=== PATIENT | male | born 1960 | race Caucasian/White ===

== ENCOUNTER 2022-01-23 13:39 | Inpatient (IN) | payer MEDICARE, MEDICAID ==
[~2022-01-23] VITALS: Ht 170.2 cm; Wt 69.4 kg
[2022-01-23 15:40] LABS: HEMATOCRIT. 37.4 % (42.0-52.0); HEMOGLOBIN. 13.5 g/dL (14.0-18.0); MEAN CORPUSCULAR HEMOGLOBIN 35.6 pg (28.0-32.0); MEAN CORPUSCULAR VOLUME 99.2 fL (80.0-94.0); MEAN PLATELET VOLUME 6.8 fl (7.4-10.4); PLATELET 172 x1000/uL (130-400); RED BLOOD CELL COUNT 3.77 mill/uL (4.7-6.1); RED CELL DISTRIBUTION WIDTH 14.5 % (11.6-14.6)
[2022-01-23 15:48] LABS: CHLORIDE 84 mEq/L (98-107)
[2022-01-23 15:57] LABS: ETHANOL BLOOD < 10 mg/dL
[2022-01-23 16:41] LABS: PLATELET ESTIMATE NORMAL
[2022-01-23] MEDS ORDERED: LEVOFLOXACIN 750MG PREMIX 150 ML IV ONE (17:15)
[2022-01-23] MEDS ORDERED: SODIUM CHLORIDE 0.9% 1,000 ML IV ONE ×2 (17:15→20:45)
[2022-01-23] MEDS ORDERED: CEFTRIAXONE 1 G PREMIX 50 ML IV ONE (17:15)
[2022-01-23 18:23] LABS: CLARITY URINE CLEAR (CLEAR); COLOR URINE YELLOW (YELLOW); KETONES URINE TRACE (NEGATIVE); LEUKOCYTE ESTERASE URINE NEGATIVE (NEGATIVE); NITRITE URINE NEGATIVE (NEGATIVE); OCCULT BLOOD URINE NEGATIVE (NEGATIVE); PH URINE 6.5 (4.5-8.0); PROTEIN URINE NEGATIVE (NEGATIVE); SPECIFIC GRAVITY URINE 1.008 (1.005-1.030)
[2022-01-23 18:34] LABS: *AMPHETAMINES SCREEN URINE NEGATIVE (NEGATIVE); *BARBITURATES SCREEN URINE NEGATIVE (NEGATIVE); *BENZODIAZEPINES SCREEN URINE NEGATIVE (NEGATIVE); *COCAINE SCREEN URINE NEGATIVE (NEGATIVE); CANNABINOID URINE SCREEN NEGATIVE (NEGATIVE); METHADONE URINE SCREEN NEGATIVE (NEGATIVE); OPIATES URINE SCREEN NEGATIVE (NEGATIVE); PHENCYCLIDINE URINE SCREEN NEGATIVE (NEGATIVE)
[2022-01-23] MEDS ORDERED: SODIUM CHLORIDE 0.9% 500 ML IV ONE (20:45)
[2022-01-23] MEDS ORDERED: ACETAMINOPHEN 325MG TABLET PO PRN ×2 (22:00)
[2022-01-23] MEDS ORDERED: KETOROLAC 15MG/ML VIAL IV PRN (22:00)
[2022-01-23] MEDS ORDERED: LORAZEPAM 2MG/ML CPJ IV PRN (22:00)
[2022-01-23] MEDS ORDERED: ZOLPIDEM TARTRATE 5MG TABLET PO PRN (22:00)
[2022-01-23] MEDS ORDERED: GUAIFENESIN 200MG/10ML SUGAR FREE UDC PO PRN (22:00)
[2022-01-23] MEDS ORDERED: MAGNESIUM/ALUMINUM HYDROXIDE/SIMETHICONE 30ML UDC PO PRN (22:00)
[2022-01-23] MEDS ORDERED: NITROGLYCERIN 0.4MG TABLET SL SL PRN (22:00)
[2022-01-23] MEDS ORDERED: ONDANSETRON HCL 4MG/2ML INJ IV PRN (22:00)
[2022-01-23] MEDS ORDERED: CLONIDINE 0.1MG TABLET PO PRN (22:00)
[2022-01-23] MEDS ORDERED: DOCUSATE SODIUM 100MG CAPSULE PO PRN (22:00)
[2022-01-23] MEDS ORDERED: IPRATROPIUM/ALBUTEROL 0.5-3(2.5)MG/3ML NEB NEB PRN (22:00)
[2022-01-23 22:09] LABS: T4 FREE 1.02 ng/dL (0.76-1.46)
[2022-01-23 22:35] VITALS: BP 123/63
[2022-01-23] MEDS: SODIUM CHLORIDE 0.9% 1,000 ML IV SCH (23:31)
[2022-01-23] MEDS ORDERED: LISI-186 PO (23:55)
[2022-01-23] MEDS ORDERED: DOCU-138 PO (23:55)
[2022-01-23] MEDS ORDERED: DESM0.2T4 PO (23:55)
[2022-01-23] MEDS ORDERED: BENZ2TAB7 PO (23:55)
[2022-01-23] MEDS ORDERED: DIVA-75 PO (23:55)
[2022-01-23] MEDS ORDERED: LEVO75TA7 PO (23:55)
[2022-01-23] MEDS ORDERED: CHOL200010 PO (23:55)
[2022-01-23] MEDS ORDERED: LEVE750T4 PO (23:55)
[2022-01-23] MEDS ORDERED: PALI156D IM (23:55)
[2022-01-23] MEDS ORDERED: [UNRECOGNIZED DRUG - CODE] OT (23:55)
[2022-01-24] VITALS (7 sets, daily range): BP systolic 118–139; BP diastolic 57–78
[2022-01-24 00:52] LABS: CREATINE KINASE 124 IU/L (39-308); CREATINE KINASE MB FRACTION 4.1 ng/mL (0.5-3.6)
[2022-01-24] MEDS: LEVOTHYROXINE SODIUM 75MCG TABLET PO SCH (06:24)
[2022-01-24 07:06] LABS: BASOPHILS % 0.1 % (0.0-2.0); EOSINOPHILS % 0.1 % (0.0-5.0); HEMATOCRIT. 36.1 % (42.0-52.0); HEMOGLOBIN. 12.7 g/dL (14.0-18.0); LYMPHOCYTES % 7.3 % (20.0-50.0); MEAN CORPUSCULAR HEMOGLOBIN 35.3 pg (28.0-32.0); MEAN CORPUSCULAR VOLUME 100.3 fL (80.0-94.0); MEAN PLATELET VOLUME 7.5 fl (7.4-10.4); NEUTROPHILS % 82.5 % (40.0-76.0); PLATELET 172 x1000/uL (130-400); RED CELL DISTRIBUTION WIDTH 14.7 % (11.6-14.6)
[2022-01-24 07:47] LABS: CHLORIDE 103 mEq/L (98-107); PHOSPHORUS 2.8 mg/dL (2.5-4.9)
[2022-01-24 07:49] LABS: CREATINE KINASE 89 IU/L (39-308)
[2022-01-24 07:53] LABS: CREATINE KINASE MB FRACTION 3.3 ng/mL (0.5-3.6)
[2022-01-24] MEDS ORDERED: LEVETIRACETAM 750 MG PO SCH (09:00)
[2022-01-24] MEDS: LEVETIRACETAM 250MG TABLET PO SCH ×2 (10:17→20:58)
[2022-01-24] MEDS: ENOXAPARIN 40MG/0.4ML SYR SUBCUT SCH (10:17)
[2022-01-24] MEDS: ZINC SULFATE 220 MG ( 50 ) CAPSULE PO SCH (10:18)
[2022-01-24] MEDS: FAMOTIDINE 20MG TABLET PO SCH ×2 (10:18→20:58)
[2022-01-24] MEDS: BENZTROPINE MESYLATE 2MG TABLET PO SCH ×2 (10:19→16:52)
[2022-01-24] MEDS: ASCORBIC ACID 500 MG TABLET PO SCH ×2 (10:19→20:58)
[2022-01-24] MEDS: ASPIRIN 325MG EC TABLET PO SCH (10:19)
[2022-01-24] MEDS: DIVALPROEX SODIUM 250MG DR TABLET PO SCH ×2 (10:19→16:52)
[2022-01-24] MEDS: CHOLECALCIFEROL (D3) 1000 UNIT TABLET PO SCH (10:20)
[2022-01-24] MEDS: LISINOPRIL 5MG TABLET PO SCH (10:21)
[2022-01-24] MEDS: SODIUM CHLORIDE 0.9% 1,000 ML IV SCH (14:28)
[2022-01-24] MEDS ORDERED: DEXTROSE 5% WATER 1,000 ML IV SCH (17:30)
[2022-01-24] MEDS ORDERED: MAGNESIUM 1 G PREMIX 100 ML IV NR (18:30)
[2022-01-25 00:04] VITALS: BP 103/52
[2022-01-25 03:37] VITALS: BP 100/52
[2022-01-25] MEDS: LEVOTHYROXINE SODIUM 75MCG TABLET PO SCH (06:08)
[2022-01-25 07:17] LABS: BASOPHILS % 0.2 % (0.0-2.0); EOSINOPHILS % 0.7 % (0.0-5.0); HEMATOCRIT. 34.8 % (42.0-52.0); HEMOGLOBIN. 12.1 g/dL (14.0-18.0); LYMPHOCYTES % 18.5 % (20.0-50.0); MEAN CORPUSCULAR HEMOGLOBIN 34.9 pg (28.0-32.0); MEAN CORPUSCULAR VOLUME 100.5 fL (80.0-94.0); MEAN PLATELET VOLUME 7.8 fl (7.4-10.4); MONOCYTES % 11.3 % (2.0-8.0); NEUTROPHILS % 69.3 % (40.0-76.0); PLATELET 153 x1000/uL (130-400); RED BLOOD CELL COUNT 3.46 mill/uL (4.7-6.1); RED CELL DISTRIBUTION WIDTH 14.9 % (11.6-14.6)
[2022-01-25 08:00] VITALS: BP 129/78
[2022-01-25] MEDS: ENOXAPARIN 40MG/0.4ML SYR SUBCUT SCH (09:12)
[2022-01-25] MEDS: FAMOTIDINE 20MG TABLET PO SCH ×2 (09:12→21:24)
[2022-01-25] MEDS: BENZTROPINE MESYLATE 2MG TABLET PO SCH ×2 (09:12→17:00)
[2022-01-25] MEDS: LISINOPRIL 5MG TABLET PO SCH (09:12)
[2022-01-25] MEDS: ZINC SULFATE 220 MG ( 50 ) CAPSULE PO SCH (09:12)
[2022-01-25] MEDS: LEVETIRACETAM 250MG TABLET PO SCH ×2 (09:12→21:24)
[2022-01-25] MEDS: ASPIRIN 325MG EC TABLET PO SCH (09:12)
[2022-01-25] MEDS: CHOLECALCIFEROL (D3) 1000 UNIT TABLET PO SCH (09:12)
[2022-01-25] MEDS: ASCORBIC ACID 500 MG TABLET PO SCH ×2 (09:12→21:24)
[2022-01-25] MEDS: DIVALPROEX SODIUM 250MG DR TABLET PO SCH ×2 (09:13→17:00)
[2022-01-25 09:36] LABS: CHLORIDE 99 mEq/L (98-107)
[2022-01-25 09:49] LABS: PHOSPHORUS 3.6 mg/dL (2.5-4.9)
[2022-01-25] MEDS: SODIUM CHLORIDE 0.9% 1,000 ML IV SCH ×2 (11:14→23:22)
[2022-01-25 12:00] VITALS: BP 112/60
[2022-01-25 16:00] VITALS: BP 122/71
[2022-01-25 20:00] VITALS: BP 130/67
[2022-01-26] VITALS: BP 129/75
[2022-01-26 04:30] VITALS: BP 129/73
[2022-01-26] MEDS: LEVOTHYROXINE SODIUM 75MCG TABLET PO SCH (05:45)
[2022-01-26 06:40] LABS: BASOPHILS % 0.2 % (0.0-2.0); CHLORIDE 101 mEq/L (98-107); HEMATOCRIT. 34.5 % (42.0-52.0); HEMOGLOBIN. 12.3 g/dL (14.0-18.0); LYMPHOCYTES % 24.6 % (20.0-50.0); MEAN CORPUSCULAR HEMOGLOBIN 35.6 pg (28.0-32.0); MEAN CORPUSCULAR VOLUME 100.3 fL (80.0-94.0); MEAN PLATELET VOLUME 7.3 fl (7.4-10.4); MONOCYTES % 11.9 % (2.0-8.0); NEUTROPHILS % 62.3 % (40.0-76.0); PLATELET 160 x1000/uL (130-400); RED BLOOD CELL COUNT 3.44 mill/uL (4.7-6.1); RED CELL DISTRIBUTION WIDTH 14.9 % (11.6-14.6)
[2022-01-26 07:37] VITALS: BP 135/68
[2022-01-26] MEDS: ASPIRIN 325MG EC TABLET PO SCH (08:09)
[2022-01-26] MEDS: BENZTROPINE MESYLATE 2MG TABLET PO SCH ×2 (08:09→16:03)
[2022-01-26] MEDS: ASCORBIC ACID 500 MG TABLET PO SCH ×2 (08:09→21:29)
[2022-01-26] MEDS: ZINC SULFATE 220 MG ( 50 ) CAPSULE PO SCH (08:09)
[2022-01-26] MEDS: ENOXAPARIN 40MG/0.4ML SYR SUBCUT SCH (08:09)
[2022-01-26] MEDS: LEVETIRACETAM 250MG TABLET PO SCH ×2 (08:10→21:29)
[2022-01-26] MEDS: DIVALPROEX SODIUM 250MG DR TABLET PO SCH ×2 (08:10→16:03)
[2022-01-26] MEDS: LISINOPRIL 5MG TABLET PO SCH (08:10)
[2022-01-26] MEDS: FAMOTIDINE 20MG TABLET PO SCH ×2 (08:10→21:29)
[2022-01-26] MEDS: CHOLECALCIFEROL (D3) 1000 UNIT TABLET PO SCH (08:12)
[2022-01-26 11:59] VITALS: BP 112/64
[2022-01-26] MEDS: SODIUM CHLORIDE 0.9% 1,000 ML IV SCH (12:05)
[2022-01-26 16:00] VITALS: BP 119/76
[2022-01-27] MEDS: SODIUM CHLORIDE 0.9% 1,000 ML IV SCH ×2 (02:21→15:06)
[2022-01-27] MEDS: LEVOTHYROXINE SODIUM 75MCG TABLET PO SCH (06:52)
[2022-01-27 08:00] VITALS: BP 140/78
[2022-01-27] MEDS: ASCORBIC ACID 500 MG TABLET PO SCH ×2 (09:03→21:54)
[2022-01-27] MEDS: LEVETIRACETAM 250MG TABLET PO SCH ×2 (09:03→21:54)
[2022-01-27] MEDS: DIVALPROEX SODIUM 250MG DR TABLET PO SCH ×2 (09:03→17:17)
[2022-01-27] MEDS: CHOLECALCIFEROL (D3) 1000 UNIT TABLET PO SCH (09:04)
[2022-01-27] MEDS: BENZTROPINE MESYLATE 2MG TABLET PO SCH ×2 (09:04→17:17)
[2022-01-27] MEDS: FAMOTIDINE 20MG TABLET PO SCH ×2 (09:04→21:54)
[2022-01-27] MEDS: LISINOPRIL 5MG TABLET PO SCH (09:04)
[2022-01-27] MEDS: ZINC SULFATE 220 MG ( 50 ) CAPSULE PO SCH (09:04)
[2022-01-27] MEDS: ENOXAPARIN 40MG/0.4ML SYR SUBCUT SCH (09:05)
[2022-01-27] MEDS: ASPIRIN 325MG EC TABLET PO SCH (09:05)
[2022-01-27 12:00] VITALS: BP 131/73
[2022-01-27 16:00] VITALS: BP 138/74
[2022-01-27 20:00] VITALS: BP 153/80
[2022-01-28] VITALS: BP 148/76
[2022-01-28] MEDS: SODIUM CHLORIDE 0.9% 1,000 ML IV SCH (03:58)
[2022-01-28 04:00] VITALS: BP 139/75
[2022-01-28] MEDS: LEVOTHYROXINE SODIUM 75MCG TABLET PO SCH (07:40)
[2022-01-28 08:00] VITALS: BP 129/79
[2022-01-28] MEDS: ASPIRIN 325MG EC TABLET PO SCH (08:49)
[2022-01-28] MEDS: CHOLECALCIFEROL (D3) 1000 UNIT TABLET PO SCH (08:50)
[2022-01-28] MEDS: ZINC SULFATE 220 MG ( 50 ) CAPSULE PO SCH (08:50)
[2022-01-28] MEDS: ASCORBIC ACID 500 MG TABLET PO SCH (08:51)
[2022-01-28] MEDS: FAMOTIDINE 20MG TABLET PO SCH (08:51)
[2022-01-28] MEDS: LEVETIRACETAM 250MG TABLET PO SCH (08:51)
[2022-01-28] MEDS: BENZTROPINE MESYLATE 2MG TABLET PO SCH ×2 (08:51→16:58)
[2022-01-28] MEDS: LISINOPRIL 5MG TABLET PO SCH (08:51)
[2022-01-28] MEDS: DIVALPROEX SODIUM 250MG DR TABLET PO SCH ×2 (08:51→16:58)
[2022-01-28] MEDS: ENOXAPARIN 40MG/0.4ML SYR SUBCUT SCH (08:52)
[2022-01-28] MEDS ORDERED: CLOPIDOGREL 75MG TABLET PO SCH (10:45)
[2022-01-28 12:00] VITALS: BP 117/73
[2022-01-28 12:05] LABS: HDL CHOLESTEROL 52 mg/dL (40-59); LDL CHOLESTEROL 62 mg/dL (5-100)
[2022-01-28 16:00] VITALS: BP 125/64
[2022-01-28 16:46] VITALS: BP 125/64
[2022-01-28] MEDS ORDERED: LACTULOSE 20G/30ML UDC PO NR (17:15)
[2022-01-28] MEDS ORDERED: CLOP-31 MT (17:25)
[2022-01-28] MEDS ORDERED: FAMO-135 MT (17:25)
== END 2022-01-28 18:08 | disposition home or self-care (01) | DRG 871 ==
LOC: ER 13:39 → 8WST 19:29 → EDBEDREQTM 20:16 → EDBEDREQ 20:16 → ENRESERV 20:51
PROVIDERS: ADMIT Internal Medicine; ATTEND Internal Medicine
DX: A41.89 Other specified sepsis (principal); J18.9 Pneumonia, unspecified organism; E87.1 Hypo-osmolality and hyponatremia; E46 Unspecified protein-calorie malnutrition; R56.9 Unspecified convulsions; E11.9 Type 2 diabetes mellitus without complications; F03.90 Unspecified dementia, unspecified severity, without behavioral disturbance, psychotic disturbance, mood disturbance, and anxiety; I11.0 Hypertensive heart disease with heart failure; F41.9 Anxiety disorder, unspecified; I50.9 Heart failure, unspecified; F20.9 Schizophrenia, unspecified; R32 Unspecified urinary incontinence; R41.89 Other symptoms and signs involving cognitive functions and awareness; Z68.24 Body mass index [BMI] 24.0-24.9, adult; Z79.899 Other long term (current) drug therapy; Z99.3 Dependence on wheelchair
CPT/HCPCS: 36415; 70551; 71045; 80053; 80305; 80320; 81003; 82533; 82550; 82553; 82607; 82746; 82962; 83036; 83540; 83550; 83605; 83718; 83721; 83735; 83930; 84100; 84145; 84439; 84443; 84484; 85025; 93005; 93306; 93970; 97162; 99291; J0696; J1650; J1885; J1956; J2060; J3475; J7030; J7040; G0480